=== PATIENT | female | born 1940 | race Caucasian/White ===

== ENCOUNTER 2022-04-03 21:49 | Inpatient (IN) | payer MEDICARE, OTHER ==
[~2022-04-03] VITALS: Ht 167.6 cm; Wt 74.1 kg
[2022-04-03 21:30] VITALS: BP 134/55
--- NOTE | 2022-04-03 21:30 | NUR ---
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 AAOx4 Patient Chilean but speaks good Mexican. Patient has Hx of Ovarian Ca, was on Chemo x8yrs ago, hysterectomy, HTN,and CVA with left side weakness. VSS. John catheter intact draining yellow urine. All needs attended. Sacral area excoriated, also has abdominal folds excoriated. Denies any pain nor any discomfort. On O2 @ 2L via nasal cannula, pulse ox 95%. Left side weak. Repositioned for comfort. Turned to sides. Epic group (dr Santoyo) texted to reconcile meds. Dr Howell also aware of patient's admission. Will monitor patient.
[2022-04-03] MEDS ORDERED: REMEDY ESSENTIAL ZINC PASTE 113 GM TOP PRN (22:00)
[2022-04-03] MEDS ORDERED: ONDA-104 PO (23:01)
[2022-04-03] MEDS ORDERED: APIX2.5T PO (23:01)
[2022-04-03] MEDS ORDERED: POLY119P2 PO (23:01)
[2022-04-03] MEDS ORDERED: CARV25TA2 PO (23:01)
[2022-04-03] MEDS ORDERED: BISA10SU61 RC (23:01)
[2022-04-03] MEDS ORDERED: DIPH25CA83 PO (23:01)
[2022-04-03] MEDS ORDERED: PANT40TA49 PO (23:01)
[2022-04-03] MEDS ORDERED: ACET-2154 PO (23:01)
[2022-04-03] MEDS ORDERED: TRAM50TA PO (23:01)
[2022-04-03] MEDS ORDERED: ATOR10TA PO (23:01)
[2022-04-03] MEDS ORDERED: DOCU100C36 PO (23:01)
[2022-04-03] MEDS ORDERED: HYDR4CRE2 TP (23:01)
[2022-04-04 05:00] VITALS: BP 154/57
[2022-04-04] MEDS ORDERED: HYDR453.3 TP (06:46)
[2022-04-04 07:44] VITALS: BP 142/44
--- NOTE | 2022-04-04 08:00 | NUR ---
Assisted with breakfast. Cleansd and repositioned.
--- NOTE | 2022-04-04 09:15 | NUR ---
Daughter here. Cleaned and changed once again. Has noguera, and no bm at this time.
[2022-04-04] MEDS: ACETAMINOPHEN 325 MG TABLET PO PRN ×2 (10:19→20:21)
--- NOTE | 2022-04-04 10:30 | NUR ---
MODERATE AMOUNT STOOL. LINEN CHANGED. REPOSITIONED.
[2022-04-04] MEDS ORDERED: POLYETHYLENE GLYCOL 3350 238 GM POWDER PO SCH (11:15)
[2022-04-04] MEDS ORDERED: BISACODYL 10 MG SUPP.RECT RC PRN (11:15)
[2022-04-04] MEDS ORDERED: HYDROCORTISONE 1% CREAM 30 GM TUBE TP PRN (11:15)
[2022-04-04] MEDS ORDERED: HYDROCORTISONE 2.5% CREAM 20 GM TUBE TOP PRN (11:15)
[2022-04-04] MEDS ORDERED: ONDANSETRON HCL 4 MG TABLET PO PRN (11:15)
[2022-04-04] MEDS ORDERED: MIRALAX 17 GM POWD.PACK PO PRN (11:15)
[2022-04-04] MEDS: LACTULOSE 20 G/30 ML LIQUID UDC PO SCH ×3 (11:43→23:11)
[2022-04-04] MEDS: APIXABAN 2.5 MG TABLET PO SCH ×2 (11:43→20:23)
[2022-04-04] MEDS ORDERED: ACETAMINOPHEN 325 MG TABLET-SA PATIENTS-PAIN ONLY PO SCH (12:00)
--- NOTE | 2022-04-04 13:00 | NUR ---
LARGE LOOSE STOOL. LINEN CHANGED. REPOSITIONED.
[2022-04-04 15:49] VITALS: BP 157/78
[2022-04-04] MEDS: PANTOPRAZOLE SODIUM 40 MG TABLET.DR PO SCH (16:33)
[2022-04-04] MEDS: DOCUSATE SODIUM 100 MG CAPSULE PO SCH (16:33)
[2022-04-04] MEDS: CARVEDILOL 25 MG TABLET PO SCH (17:07)
[2022-04-04 20:03] VITALS: BP 126/54
[2022-04-04] MEDS: diphenhydrAMINE 25 MG CAP PO PRN (20:21)
[2022-04-04] MEDS: ATORVASTATIN 10 MG TABLET PO SCH (20:21)
[2022-04-04] MEDS: TRAMADOL HCL 50 MG TABLET PO PRN (23:44)
--- NOTE | 2022-04-05 04:48 | NUR ---
Awake and alert x1-2 Confused and disoriented.Patient keep on taking off clothes and stating she's hot and itching. All due meds give. Medicated for pain as needed. Slight relief noted. Slept only for a little bit. Benadryl given for itching. Fall precautions maintained. Call kimball within reach. All needs attended. John catheter intact draining yellow urine. Patient had BM this shift. Will monitor patient. Lactulose held this am.
[2022-04-05] MEDS: LACTULOSE 20 G/30 ML LIQUID UDC PO SCH ×3 (05:22→17:27)
[2022-04-05 05:59] VITALS: BP 120/59
[2022-04-05] MEDS: PANTOPRAZOLE SODIUM 40 MG TABLET.DR PO SCH ×2 (06:05→17:35)
[2022-04-05] MEDS: APIXABAN 2.5 MG TABLET PO SCH ×2 (08:44→21:27)
[2022-04-05] MEDS: TRAMADOL HCL 50 MG TABLET PO PRN (08:44)
[2022-04-05] MEDS: CARVEDILOL 25 MG TABLET PO SCH ×2 (08:44→17:35)
[2022-04-05] MEDS: DOCUSATE SODIUM 100 MG CAPSULE PO SCH ×2 (08:44→17:35)
[2022-04-05 15:47] VITALS: BP 133/51
[2022-04-05 20:59] VITALS: BP 135/61
[2022-04-05] MEDS: ATORVASTATIN 10 MG TABLET PO SCH (21:26)
[2022-04-05] MEDS: diphenhydrAMINE 25 MG CAP PO PRN (21:26)
[2022-04-05 23:56] VITALS: BP 144/65
[2022-04-06] MEDS: LACTULOSE 20 G/30 ML LIQUID UDC PO SCH ×3 (00:17→20:31)
[2022-04-06] MEDS: TRAMADOL HCL 50 MG TABLET PO PRN ×2 (02:28→20:31)
[2022-04-06] MEDS: diphenhydrAMINE 25 MG CAP PO PRN ×2 (04:17→20:31)
[2022-04-06 04:18] VITALS: BP 143/58
[2022-04-06] MEDS: PANTOPRAZOLE SODIUM 40 MG TABLET.DR PO SCH ×2 (05:57→17:27)
[2022-04-06 07:39] VITALS: BP 139/57
[2022-04-06] MEDS: CARVEDILOL 25 MG TABLET PO SCH ×2 (12:29→17:27)
[2022-04-06] MEDS: DOCUSATE SODIUM 100 MG CAPSULE PO SCH ×2 (12:29→17:27)
[2022-04-06] MEDS: APIXABAN 2.5 MG TABLET PO SCH ×2 (12:29→20:33)
[2022-04-06 15:03] VITALS: BP 117/42
[2022-04-06 20:26] VITALS: BP 123/48
[2022-04-06] MEDS: ATORVASTATIN 10 MG TABLET PO SCH (20:31)
--- NOTE | 2022-04-06 21:00 | NUR ---
Patient awake, alert, and oriented x2. No acute distress noted. Room air, respirations even and non labored. Abdomen soft with + bowel sounds. No IV access noted. John intact with danae urine noted. Side rails up x3. Call kimball in reach. Will continue to monitor.
[2022-04-07 04:13] VITALS: BP 148/50
[2022-04-07] MEDS: ACETAMINOPHEN 325 MG TABLET PO PRN ×2 (04:43→21:01)
[2022-04-07] MEDS: PANTOPRAZOLE SODIUM 40 MG TABLET.DR PO SCH ×2 (05:49→17:16)
[2022-04-07 07:30] VITALS: BP 119/50
[2022-04-07] MEDS: DOCUSATE SODIUM 100 MG CAPSULE PO SCH ×2 (08:26→17:17)
[2022-04-07] MEDS: diphenhydrAMINE 25 MG CAP PO PRN ×2 (08:26→21:01)
[2022-04-07] MEDS: APIXABAN 2.5 MG TABLET PO SCH ×2 (08:26→21:03)
[2022-04-07] MEDS: CARVEDILOL 25 MG TABLET PO SCH ×2 (08:26→17:25)
[2022-04-07] MEDS: LACTULOSE 20 G/30 ML LIQUID UDC PO SCH ×2 (08:27→21:01)
[2022-04-07] MEDS: ENSURE ENLIVE (VAN) 240 ML LIQUID PO SCH (08:27)
[2022-04-07] MEDS: HYDROCORTISONE 1% CREAM 30 GM TUBE TP SCH ×2 (12:38→17:18)
[2022-04-07 15:24] VITALS: BP 130/70
[2022-04-07 20:00] VITALS: BP 114/60
[2022-04-07] MEDS: ATORVASTATIN 10 MG TABLET PO SCH (21:01)
[2022-04-08] MEDS: PANTOPRAZOLE SODIUM 40 MG TABLET.DR PO SCH ×2 (06:09→17:18)
[2022-04-08 07:03] VITALS: BP 108/68
[2022-04-08 08:49] VITALS: BP 167/59
[2022-04-08] MEDS: DOCUSATE SODIUM 100 MG CAPSULE PO SCH ×2 (09:24→17:18)
[2022-04-08] MEDS: APIXABAN 2.5 MG TABLET PO SCH ×2 (09:25→20:38)
[2022-04-08] MEDS: ACETAMINOPHEN 325 MG TABLET PO PRN ×2 (09:25→20:37)
[2022-04-08] MEDS: LACTULOSE 20 G/30 ML LIQUID UDC PO SCH ×3 (09:25→20:42)
[2022-04-08] MEDS: CARVEDILOL 25 MG TABLET PO SCH ×2 (09:28→17:18)
[2022-04-08] MEDS: ENSURE ENLIVE (VAN) 240 ML LIQUID PO SCH (09:34)
[2022-04-08] MEDS: HYDROCORTISONE 1% CREAM 30 GM TUBE TP SCH ×2 (09:34→17:22)
[2022-04-08 16:04] VITALS: BP 153/64
--- NOTE | 2022-04-08 19:36 | NUR ---
RECEIVED REPORT FROM DEO GIFFORD RN. PATIENT IS ALERT & ORIENTED X3-4, AND ABLE TO SPEAK LATVIAN. VITAL SIGNS STABLE. PATIENT TOLERATES PO MEDICATIONS AND DIET WELL. PATIENT REA CATHETER PATENT & DRAINING. PATIENT HAD ONE BOWEL MOVEMENT. PARTICIPATES WITH PHYSICAL AND OCCUPATIONAL THERAPY SCHEDULED. PATIENT HAD COMPLAINT OF PAIN. RN MANAGED PAIN WITH MEDICATIONS ORDERED BY MD. NO ACUTE DISTRESS NOTED. FALL PRECAUTIONS IN PLACE. ALL NEEDS MET AT THIS TIME. ENDORSED CARE TO DEO GIFFORD RN, FOR CONTINUATION OF CARE.
[2022-04-08 20:00] VITALS: BP 146/48
[2022-04-08] MEDS: diphenhydrAMINE 25 MG CAP PO PRN (20:37)
[2022-04-08] MEDS: ATORVASTATIN 10 MG TABLET PO SCH (20:38)
--- NOTE | 2022-04-08 20:43 | NUR ---
Patient refused Lactulose this time. She said she had a big one this morning.
[2022-04-09 04:00] VITALS: BP 138/50
[2022-04-09] MEDS: diphenhydrAMINE 25 MG CAP PO PRN ×2 (06:19→20:38)
[2022-04-09] MEDS: PANTOPRAZOLE SODIUM 40 MG TABLET.DR PO SCH ×2 (06:19→17:07)
[2022-04-09 08:00] VITALS: BP 136/56
[2022-04-09] MEDS: CARVEDILOL 25 MG TABLET PO SCH ×2 (08:01→17:39)
[2022-04-09] MEDS: TRAMADOL HCL 50 MG TABLET PO PRN (08:43)
[2022-04-09] MEDS: LACTULOSE 20 G/30 ML LIQUID UDC PO SCH ×2 (08:43→20:30)
[2022-04-09] MEDS: DOCUSATE SODIUM 100 MG CAPSULE PO SCH ×2 (08:43→17:07)
[2022-04-09] MEDS: APIXABAN 2.5 MG TABLET PO SCH ×2 (08:45→20:39)
[2022-04-09] MEDS: ENSURE ENLIVE (VAN) 240 ML LIQUID PO SCH (09:32)
[2022-04-09] MEDS: HYDROCORTISONE 1% CREAM 30 GM TUBE TP SCH ×2 (09:32→17:11)
[2022-04-09 16:00] VITALS: BP 138/70
--- NOTE | 2022-04-09 16:28 | NUR ---
0730-Rec'd patinet in bed, awake, verbally communicative, denies pain. Call light at reach. Safety measures in place. 0900-Scheduled medication administered as ordered with no ASE noted. Oral fluids taken well. John Cath draining to gravity.
--- NOTE | 2022-04-09 18:49 | NUR ---
All needs anticipated and met, no JAYCOB or unusual happenings during shift. Patient rec'd therapy PT/OT skilled services and micheal. well. Patient's son and grandson visited her during the shift. All needs attended well and met.
[2022-04-09 20:00] VITALS: BP 136/72
[2022-04-09] MEDS: ATORVASTATIN 10 MG TABLET PO SCH (20:38)
[2022-04-09] MEDS: ACETAMINOPHEN 325 MG TABLET PO PRN (20:38)
[2022-04-10 05:49] VITALS: BP 130/71
[2022-04-10] MEDS: PANTOPRAZOLE SODIUM 40 MG TABLET.DR PO SCH ×2 (06:03→16:43)
[2022-04-10] MEDS: ACETAMINOPHEN 325 MG TABLET PO PRN ×2 (06:03→16:43)
--- NOTE | 2022-04-10 06:15 | NUR ---
Shift end report: Medicated with Benadryl for c/o itchiness and Tylenol for discomforts with help last night. Able to slept good. Then complaint of headache after AM care.Tylenol was given as ordered and needed and with relief. No further complaint presented. All needs attended and met. In no acute respiratory distress.
[2022-04-10] MEDS: CARVEDILOL 25 MG TABLET PO SCH ×2 (07:44→17:40)
[2022-04-10 07:58] VITALS: BP 118/49
[2022-04-10] MEDS: APIXABAN 2.5 MG TABLET PO SCH ×2 (08:37→20:12)
[2022-04-10] MEDS: LACTULOSE 20 G/30 ML LIQUID UDC PO SCH ×3 (08:37→20:20)
[2022-04-10] MEDS: DOCUSATE SODIUM 100 MG CAPSULE PO SCH ×2 (08:37→16:43)
[2022-04-10] MEDS: HYDROCORTISONE 1% CREAM 30 GM TUBE TP SCH ×2 (08:40→16:45)
[2022-04-10] MEDS: ENSURE ENLIVE (VAN) 240 ML LIQUID PO SCH (09:20)
--- NOTE | 2022-04-10 10:39 | NUR ---
0730-Rec'd patient in bed awake, VSS, denies pain. No resp. distress noted, no s/s of hypo/HTN, oral fluids offered and takien well. Safety measures in place and call light at reach. 0900-scheduled medication administered as ordered with no ASE noted. Oral fluids taken well. Will monitor.
[2022-04-10] MEDS: TRAMADOL HCL 50 MG TABLET PO PRN ×2 (11:26→20:18)
--- NOTE | 2022-04-10 12:08 | NUR ---
BRANDY Family Contact: BRANDY met with pt's daughter, Lisa in person ([phone]) to discuss continuation of care referrals per Lisa's request. BRANDY provided [facility] application paperwork for Lisa per request. Lisa stated per case folder, Jose, pt does not have a discharge date as of now. BRANDY stated she will continue to speak to pt regarding the discharge plan and be available as needed for further questions. Lisa was aware and agreeable.
--- NOTE | 2022-04-10 14:26 | NUR ---
INTERDISCIPLINARY TEAM CONFERENCE
[2022-04-10 16:00] VITALS: BP 130/67
--- NOTE | 2022-04-10 19:16 | NUR ---
John catheter D/C'D as ordered by MD. Procedure explained prior. Patient tolerated well. Denied any bladder pain or discomfort. Endorsed appropriately to incoming relieving NOC RN. for proper follow up.
[2022-04-10 20:00] VITALS: BP 119/45
[2022-04-10] MEDS: ATORVASTATIN 10 MG TABLET PO SCH (20:12)
[2022-04-10] MEDS: diphenhydrAMINE 25 MG CAP PO PRN (20:17)
[2022-04-11] MEDS: TRAMADOL HCL 50 MG TABLET PO PRN ×2 (03:14→09:17)
--- NOTE | 2022-04-11 03:29 | NUR ---
Bladder scan performed, showed 145cc urine retention. Patient tolerated procedure well. Continue to monitor urine output.
[2022-04-11 04:00] VITALS: BP 121/45
[2022-04-11] MEDS: PANTOPRAZOLE SODIUM 40 MG TABLET.DR PO SCH ×2 (06:18→16:45)
[2022-04-11] MEDS: CARVEDILOL 25 MG TABLET PO SCH ×2 (07:54→17:43)
[2022-04-11 07:58] VITALS: BP 128/56
[2022-04-11] MEDS: METOCLOPRAMIDE HCL 10 MG TABLET PO SCH (09:03)
[2022-04-11] MEDS: APIXABAN 2.5 MG TABLET PO SCH ×2 (09:03→20:14)
[2022-04-11] MEDS: DOCUSATE SODIUM 100 MG CAPSULE PO SCH ×2 (09:03→16:45)
[2022-04-11] MEDS: ENSURE ENLIVE (VAN) 240 ML LIQUID PO SCH ×3 (09:05→17:17)
[2022-04-11] MEDS: LACTULOSE 20 G/30 ML LIQUID UDC PO SCH ×2 (09:06→20:14)
--- NOTE | 2022-04-11 09:57 | NUR ---
Bladder scanner performed, showed 0 ml retention of urine.l PAINT MAKER reported to me that she changed pt's wet diaper and urine had a strong odor. Pt reported no pain at the bladder area.
[2022-04-11] MEDS: HYDROCORTISONE 1% CREAM 30 GM TUBE TP SCH ×2 (10:13→16:46)
[2022-04-11] MEDS: ACETAMINOPHEN 325 MG TABLET PO PRN ×2 (11:49→20:13)
[2022-04-11 11:52] LABS: *BILIRUBIN,URIN NEGATIVE (NEGATIVE); *BLOOD, URINE 1+ (NEGATIVE); *CLARITY,URINE CLOUDY (CLEAR); *COLOR,URINE Other (YELLOW); *KETONES,URINE NEGATIVE (NEGATIVE); LEUKOCYTE ESTERASE ,URINE 1+ (NEGATIVE); NITRITE, URINE NEGATIVE (NEGATIVE); PH,URINE 8.5 (5.0-8.0); UGLUCOSE NEGATIVE (NEGATIVE)
[2022-04-11 15:47] VITALS: BP 126/55
[2022-04-11 16:36] LABS: BACTERIA,URINE MANY /HPF (NONE SEEN); RBC,URINE 0-3 /HPF (0-3); SQUAMOUS EPITHELIAL CELL,UR FEW /HPF (NONE SEEN); WBC,URINE NONE SEEN /HPF (0-3)
[2022-04-11 16:37] LABS: TRIPLE PHOSPHATE CRYSTAL,UR FEW /HPF (NONE SEEN)
[2022-04-11 20:00] VITALS: BP 102/52
[2022-04-11] MEDS: ATORVASTATIN 10 MG TABLET PO SCH (20:13)
[2022-04-11] MEDS: diphenhydrAMINE 25 MG CAP PO PRN (20:13)
[2022-04-12] MEDS: ACETAMINOPHEN 325 MG TABLET PO PRN ×2 (04:42→15:23)
[2022-04-12 04:54] VITALS: BP 110/68
[2022-04-12] MEDS: PANTOPRAZOLE SODIUM 40 MG TABLET.DR PO SCH ×2 (05:23→17:51)
[2022-04-12 06:45] LABS: HEMATOCRIT 29.4 % (31.2-41.9); MEAN CORPUSCULAR HEMOGLOBIN 23.4 uug (24.7-32.8); PLATELET COUNT (AUTO) 608 K/uL (179-408)
[2022-04-12 07:22] LABS: BILIRUBIN,TOTAL 1.1 mg/dL (0.2-1.0); CREATININE 1.3 mg/dL (0.6-1.3); MAGNESIUM 1.6 mg/dL (1.8-2.4); PHOSPHOROUS 3.7 mg/dL (2.5-4.9); POTASSIUM 3.5 mmol/L (3.5-5.1); TOTAL PROTEIN, SERUM 6.2 g/dL (6.4-8.2)
[2022-04-12 08:01] VITALS: BP 110/46
[2022-04-12] MEDS: LACTULOSE 20 G/30 ML LIQUID UDC PO SCH ×3 (09:00→21:27)
[2022-04-12] MEDS: ENSURE ENLIVE (VAN) 240 ML LIQUID PO SCH ×2 (09:46→17:51)
[2022-04-12] MEDS: METOCLOPRAMIDE HCL 10 MG TABLET PO SCH (09:46)
[2022-04-12] MEDS: DOCUSATE SODIUM 100 MG CAPSULE PO SCH ×2 (09:46→17:51)
[2022-04-12] MEDS: APIXABAN 2.5 MG TABLET PO SCH ×2 (09:47→21:26)
[2022-04-12] MEDS: CARVEDILOL 25 MG TABLET PO SCH ×2 (09:48→17:51)
[2022-04-12] MEDS: HYDROCORTISONE 1% CREAM 30 GM TUBE TP SCH ×2 (09:52→17:51)
[2022-04-12] MEDS ORDERED: MAGNESIUM OXIDE 400 MG TABLET PO ONE (10:30)
[2022-04-12] MEDS: TRAMADOL HCL 50 MG TABLET PO PRN (15:29)
[2022-04-12 15:54] VITALS: BP 118/48
--- NOTE | 2022-04-12 19:31 | NUR ---
SHIFT NOTES: DAUGHTER WITH PATIENT THROUGH SHIFT PT HAD ONE LARGE BM AND MEDICATION GIVEN ORDERED GAVE ULTRAM FOR HEADACHE REASSESSED WITH IN HOUR PATIENT SLEEPING AND NO ADVERSE REACTION FROM MEDICATION AND PATIENT GIVEN A NEW TUBE OF HYDROCORTISONE CREAM IN THE AM PER DAUGHTER REQUEST.
[2022-04-12 20:00] VITALS: BP 108/46
[2022-04-12] MEDS: ATORVASTATIN 10 MG TABLET PO SCH (21:26)
[2022-04-12] MEDS: diphenhydrAMINE 25 MG CAP PO PRN (22:08)
--- NOTE | 2022-04-12 23:00 | NUR ---
1915-PATIENT IN BED, AWAKE, A/Ox2-3. NO RESPIRATORY DISTRESS NOTED. The patient has no IV access. SAFETY MEASURES AND CALL LIGHT AT REACH, bed at lowest position, wheels lock, and two side rails up, bed alarm on. ORAL FLUIDS OFFERED STACY. AND TAKEN WELL. Will continue to monitor throughout the shift. 2300- The patient is awake and request for an extra blanket. Item is given to the patient. The patient has no signs of distress, or sob. Will continue to monitor throughout the shift. 0300- The patient request for an extra pillow. Item is given to the patient. The patient has no sob. Will continue to monitor throughout the shift.
[2022-04-13 04:00] VITALS: BP 124/78
[2022-04-13] MEDS: PANTOPRAZOLE SODIUM 40 MG TABLET.DR PO SCH ×2 (06:55→16:12)
[2022-04-13 07:31] LABS: CREATININE 1.1 mg/dL (0.6-1.3); MAGNESIUM 1.6 mg/dL (1.8-2.4); POTASSIUM 3.6 mmol/L (3.5-5.1)
[2022-04-13] MEDS: METOCLOPRAMIDE HCL 10 MG TABLET PO SCH (08:18)
[2022-04-13] MEDS: DOCUSATE SODIUM 100 MG CAPSULE PO SCH ×2 (08:18→16:12)
[2022-04-13] MEDS: diphenhydrAMINE 25 MG CAP PO PRN (08:19)
[2022-04-13] MEDS: LACTULOSE 20 G/30 ML LIQUID UDC PO SCH ×2 (08:20→20:53)
[2022-04-13] MEDS: ENSURE ENLIVE (VAN) 240 ML LIQUID PO SCH ×2 (08:21→16:13)
[2022-04-13] MEDS: CARVEDILOL 25 MG TABLET PO SCH ×2 (08:21→17:12)
[2022-04-13] MEDS: HYDROCORTISONE 1% CREAM 30 GM TUBE TP SCH ×2 (08:22→16:13)
[2022-04-13] MEDS: APIXABAN 2.5 MG TABLET PO SCH ×2 (08:33→20:53)
[2022-04-13 08:55] VITALS: BP 131/48
[2022-04-13] MEDS ORDERED: MAGNESIUM OXIDE 400 MG TABLET PO ONE (10:30)
[2022-04-13] MEDS: SULFAMETH/TRIMETH 800/160 MG TABLET PO SCH ×2 (10:52→20:53)
[2022-04-13] MEDS: TRAMADOL HCL 50 MG TABLET PO PRN ×2 (10:53→17:13)
--- NOTE | 2022-04-13 13:38 | NUR ---
PATIENT IS VOIDING LARGE AMOUNT OF URINE IN DIAPER, NO BLADDER DISTENSION OR TENDERNESS NOTED. BLADDER SCAN RESIDUAL IS 90ML
[2022-04-13 14:45] VITALS: BP 121/58
[2022-04-13] MEDS ORDERED: VITAMINS A AND D OINT TP PRN (16:15)
--- NOTE | 2022-04-13 16:39 | NUR ---
no events noted
[2022-04-13] MEDS: ATORVASTATIN 10 MG TABLET PO SCH (20:53)
[2022-04-13 20:57] VITALS: BP 104/39
--- NOTE | 2022-04-13 23:00 | NUR ---
1920-PATIENT IN BED, AWAKE, A/Ox2-3. NO RESPIRATORY DISTRESS NOTED. The patient has no IV access. SAFETY MEASURES AND CALL LIGHT AT REACH, bed at lowest position, wheels lock, and two side rails up, bed alarm on. ORAL FLUIDS OFFERED STACY. AND TAKEN WELL. Will continue to monitor throughout the shift. 2200- The patient is awake and request for an extra warm blanket. Item is given to the patient. The patient has no signs of distress, or sob. Will continue to monitor throughout the shift. 2300- Daughter called to notified that she will stop by tomorrow morning at 10am. 0300- The patient request for water. Item is given to the patient. The patient has no sob. Will continue to monitor throughout the shift.
[2022-04-14] MEDS: diphenhydrAMINE 25 MG CAP PO PRN ×3 (02:28→21:41)
[2022-04-14 04:05] VITALS: BP 119/51
[2022-04-14] MEDS: PANTOPRAZOLE SODIUM 40 MG TABLET.DR PO SCH ×2 (06:41→16:38)
[2022-04-14 07:32] VITALS: BP 135/51
[2022-04-14 07:41] LABS: CREATININE 1.1 mg/dL (0.6-1.3); MAGNESIUM 1.6 mg/dL (1.8-2.4); POTASSIUM 3.7 mmol/L (3.5-5.1)
[2022-04-14] MEDS: DOCUSATE SODIUM 100 MG CAPSULE PO SCH ×2 (08:22→16:38)
[2022-04-14] MEDS: APIXABAN 2.5 MG TABLET PO SCH ×2 (08:22→20:20)
[2022-04-14] MEDS: SULFAMETH/TRIMETH 800/160 MG TABLET PO SCH ×2 (08:22→20:19)
[2022-04-14] MEDS: ENSURE ENLIVE (VAN) 240 ML LIQUID PO SCH ×2 (08:23→16:31)
[2022-04-14] MEDS: HYDROCORTISONE 1% CREAM 30 GM TUBE TP SCH ×2 (08:23→16:31)
[2022-04-14] MEDS: METOCLOPRAMIDE HCL 10 MG TABLET PO SCH (08:23)
[2022-04-14] MEDS: CARVEDILOL 25 MG TABLET PO SCH ×2 (08:24→18:00)
[2022-04-14] MEDS: LACTULOSE 20 G/30 ML LIQUID UDC PO SCH ×2 (08:24→20:20)
[2022-04-14] MEDS: TRAMADOL HCL 50 MG TABLET PO PRN (08:27)
[2022-04-14] MEDS ORDERED: MAGNESIUM OXIDE 400 MG TABLET PO ONE (11:00)
--- NOTE | 2022-04-14 13:39 | NUR ---
PATIENT IS VOIDING LARGE AMOUNT OF URINE IN DIAPER, NO BLADDER DISTENSION OR TENDERNESS NOTED. BLADDER SCAN RESIDUAL IS 132ML
[2022-04-14 16:00] VITALS: BP 98/47
[2022-04-14] MEDS: ATORVASTATIN 10 MG TABLET PO SCH (20:19)
[2022-04-14 20:36] VITALS: BP 98/34
[2022-04-14] MEDS: ACETAMINOPHEN 325 MG TABLET PO PRN (21:40)
[2022-04-15] MEDS: TRAMADOL HCL 50 MG TABLET PO PRN ×2 (02:44→16:04)
[2022-04-15 04:35] VITALS: BP 115/36
[2022-04-15] MEDS: ACETAMINOPHEN 325 MG TABLET PO PRN ×2 (05:39→22:33)
[2022-04-15] MEDS: PANTOPRAZOLE SODIUM 40 MG TABLET.DR PO SCH ×2 (05:39→17:20)
--- NOTE | 2022-04-15 06:28 | NUR ---
Shift End Report: Medicated for pain, headache and itchiness with relief. No further complaint presented.Slept good. No s/s of adverse reaction noted from Bactrim. Encouraged patient to increase oral fluid intake as tolerated.Voiding good with no problem. All needs attended and met. Safety measures and fall prevention maintained. No significant event reported all night. Continue current rehab plan of care.
[2022-04-15 07:32] VITALS: BP 111/44
[2022-04-15] MEDS: CARVEDILOL 25 MG TABLET PO SCH ×2 (09:00→19:03)
[2022-04-15] MEDS: DOCUSATE SODIUM 100 MG CAPSULE PO SCH ×2 (09:16→17:19)
[2022-04-15] MEDS: SULFAMETH/TRIMETH 800/160 MG TABLET PO SCH ×2 (09:16→20:25)
[2022-04-15] MEDS: METOCLOPRAMIDE HCL 10 MG TABLET PO SCH (09:16)
[2022-04-15] MEDS: ENSURE ENLIVE (VAN) 240 ML LIQUID PO SCH ×2 (09:17→17:21)
[2022-04-15] MEDS: LACTULOSE 20 G/30 ML LIQUID UDC PO SCH ×2 (09:17→20:29)
[2022-04-15] MEDS: APIXABAN 2.5 MG TABLET PO SCH ×2 (09:19→20:25)
[2022-04-15] MEDS: HYDROCORTISONE 1% CREAM 30 GM TUBE TP SCH ×2 (09:24→16:04)
[2022-04-15] MEDS: diphenhydrAMINE 25 MG CAP PO PRN ×2 (15:36→22:32)
[2022-04-15 16:22] VITALS: BP 136/54
--- NOTE | 2022-04-15 16:35 | NUR ---
Tramadol given for pain at 1535, patient tolerated well. Daughter by bedside.
--- NOTE | 2022-04-15 19:12 | NUR ---
Patient resting comfortably in bed. Endorse to night nurse regarding Benadry @ 2100.
[2022-04-15] MEDS: ATORVASTATIN 10 MG TABLET PO SCH (20:25)
[2022-04-15 23:43] VITALS: BP 127/61
[2022-04-16 06:12] VITALS: BP 145/57
[2022-04-16] MEDS: PANTOPRAZOLE SODIUM 40 MG TABLET.DR PO SCH ×2 (06:16→17:41)
[2022-04-16 07:56] VITALS: BP 137/47
[2022-04-16] MEDS: CARVEDILOL 25 MG TABLET PO SCH ×2 (08:11→18:46)
[2022-04-16] MEDS: SULFAMETH/TRIMETH 800/160 MG TABLET PO SCH ×2 (08:11→21:03)
[2022-04-16] MEDS: DOCUSATE SODIUM 100 MG CAPSULE PO SCH ×2 (08:11→17:41)
[2022-04-16] MEDS: LACTULOSE 20 G/30 ML LIQUID UDC PO SCH ×2 (08:11→21:03)
[2022-04-16] MEDS: METOCLOPRAMIDE HCL 10 MG TABLET PO SCH (08:11)
[2022-04-16] MEDS: ENSURE ENLIVE (VAN) 240 ML LIQUID PO SCH ×2 (08:12→17:42)
[2022-04-16] MEDS: APIXABAN 2.5 MG TABLET PO SCH ×2 (08:13→21:03)
[2022-04-16] MEDS: HYDROCORTISONE 1% CREAM 30 GM TUBE TP SCH ×2 (08:22→17:42)
--- NOTE | 2022-04-16 10:23 | NUR ---
Pt's call light not working. Notified engineering and they said they would come take a look at it. Will follow up.
[2022-04-16] MEDS: TRAMADOL HCL 50 MG TABLET PO PRN (12:06)
--- NOTE | 2022-04-16 13:00 | NUR ---
Pt's ramilar, Lisa at bedside assisting with pt care. Pt c/o JONES, prn tramadol given. Pt's call light now working properly.
[2022-04-16] MEDS: ACETAMINOPHEN 325 MG TABLET PO PRN ×2 (14:17→21:03)
[2022-04-16 14:29] VITALS: BP 121/48
--- NOTE | 2022-04-16 14:31 | NUR ---
Pt continues to c/o JONES after returning from PT. Tylenol given. BP taken and VSS. Pt wants to take a nap. Will assess her JONES again after her nap.
[2022-04-16 16:13] VITALS: BP 112/41
[2022-04-16] MEDS: diphenhydrAMINE 25 MG CAP PO PRN ×2 (16:13→21:02)
--- NOTE | 2022-04-16 16:14 | NUR ---
Per pt's daughter, Charline Gonzalez, [employer] was from neurology saw the pt reguarding her head pain and suggested alternating COLD and HOT PACKS, DUE TO A SUSPECTED PINCHED NERVE IN HER NECK. Cold pack given, will continue to monitor.
--- NOTE | 2022-04-16 19:19 | NUR ---
Endorsed pt to supriya Kathleen nurse. Worked this shift with Pat Foreman [facility] RN student. Pt stable, no s/s of distress noted.
[2022-04-16 20:22] VITALS: BP 118/52
[2022-04-16] MEDS: ATORVASTATIN 10 MG TABLET PO SCH (21:03)
[2022-04-17 04:31] VITALS: BP_SYST 118; BP_SYST 153; BP_DIAS 49; BP_DIAS 93
[2022-04-17] MEDS: PANTOPRAZOLE SODIUM 40 MG TABLET.DR PO SCH ×2 (05:59→17:11)
[2022-04-17] MEDS: ACETAMINOPHEN 325 MG TABLET PO PRN (06:49)
--- NOTE | 2022-04-17 07:06 | NUR ---
Medicated with Tylenol for complaint of headache. Will monitor.
[2022-04-17 07:23] LABS: HEMATOCRIT 27.7 % (31.2-41.9); MEAN CORPUSCULAR HEMOGLOBIN 24.3 uug (24.7-32.8); MEAN CORPUSCULAR VOLUME 76.7 fL (75.5-95.3); PLATELET COUNT (AUTO) 474 K/uL (179-408)
[2022-04-17 07:47] VITALS: BP 121/47
[2022-04-17 08:09] LABS: THYROID STIMULATING HORMONE 1.489 mIU/mL (0.358-3.740)
[2022-04-17] MEDS: DOCUSATE SODIUM 100 MG CAPSULE PO SCH ×2 (08:41→17:11)
[2022-04-17] MEDS: SULFAMETH/TRIMETH 800/160 MG TABLET PO SCH ×2 (08:41→20:48)
[2022-04-17] MEDS: LACTULOSE 20 G/30 ML LIQUID UDC PO SCH ×2 (08:41→20:49)
[2022-04-17] MEDS: METOCLOPRAMIDE HCL 10 MG TABLET PO SCH (08:41)
[2022-04-17] MEDS: APIXABAN 2.5 MG TABLET PO SCH ×2 (08:43→20:49)
[2022-04-17 08:51] LABS: ALANINE AMINOTRANSFERASE 11 U/L (14-59); ALKALINE PHOSPHATASE 94 U/L (50-136); ASPARTATE AMINOTRANSFERASE 17 U/L (15-37); BILIRUBIN,TOTAL 0.5 mg/dL (0.2-1.0); CARBON DIOXIDE 27 mmol/L (21-32); CHLORIDE 101 mmol/L (98-107); CHOLESTEROL 138 mg/dL (<200); CREATININE 1.4 mg/dL (0.6-1.3); GLUCOSE 80 mg/dL (74-106); HDL CHOLESTEROL 50 mg/dL (40-60); MAGNESIUM 1.7 mg/dL (1.8-2.4); PHOSPHOROUS 3.8 mg/dL (2.5-4.9); POTASSIUM 4.3 mmol/L (3.5-5.1); TOTAL PROTEIN, SERUM 6.5 g/dL (6.4-8.2); TRIGLYCERIDES 92 MG/DL (30-150); UREA NITROGEN, BLOOD 24 mg/dL (7-18)
[2022-04-17] MEDS: CARVEDILOL 25 MG TABLET PO SCH ×2 (08:55→17:13)
[2022-04-17] MEDS: TRAMADOL HCL 50 MG TABLET PO PRN (08:57)
[2022-04-17] MEDS: HYDROCORTISONE 1% CREAM 30 GM TUBE TP SCH ×2 (08:58→17:00)
[2022-04-17] MEDS: ENSURE ENLIVE (VAN) 240 ML LIQUID PO SCH ×2 (08:58→17:12)
[2022-04-17 09:03] LABS: IRON, SERUM 50 ug/dL (50-175)
[2022-04-17] MEDS ORDERED: MAGNESIUM OXIDE 400 MG TABLET PO ONE (10:00)
--- NOTE | 2022-04-17 13:20 | NUR ---
Notified Dr. Howell during ARU meeting of pt's JONES and neck pain x3-4 days. stated he would follow up.
--- NOTE | 2022-04-17 13:45 | NUR ---
Reviewed pt's labs with dtrLisa, per pt and dtr request.
[2022-04-17 16:44] VITALS: BP 104/54
[2022-04-17] MEDS: diphenhydrAMINE 25 MG CAP PO PRN (17:55)
--- NOTE | 2022-04-17 18:13 | NUR ---
Pt's back and trunk fully healed. Hytone 1% Cream refused both times by pt today.
--- NOTE | 2022-04-17 18:35 | NUR ---
Spoke with Dr. Barrow re: pt's request for something for hemorrhoids and a doctor's note okaying a dentist visit. Dr. Barrow ordered a hemorrhoid suppository and will add a doctor's note about dental exam pending pt's condition upon discharge.
[2022-04-17 20:00] VITALS: BP 106/64
[2022-04-17] MEDS: ATORVASTATIN 10 MG TABLET PO SCH (20:49)
[2022-04-17] MEDS: HYDROCORTISONE RECTAL SUPP 25 MG EACH RC SCH (20:49)
[2022-04-18] MEDS: ACETAMINOPHEN 325 MG TABLET PO PRN ×2 (00:43→16:16)
[2022-04-18] MEDS: diphenhydrAMINE 25 MG CAP PO PRN ×2 (00:43→16:17)
[2022-04-18 03:45] VITALS: BP 115/60
[2022-04-18] MEDS: PANTOPRAZOLE SODIUM 40 MG TABLET.DR PO SCH ×2 (06:05→17:22)
[2022-04-18] MEDS: CARVEDILOL 25 MG TABLET PO SCH ×2 (07:54→18:07)
--- NOTE | 2022-04-18 07:57 | NUR ---
0730-Patient in bed, awake, alert and able to verbalize her needs, denies pain. Offered oral fluids and taken well. No s/s of hypo/HTN, repositioned for comfort/covered with warm blankets, call lights within reach.
[2022-04-18 08:00] VITALS: BP 131/52
[2022-04-18] MEDS: SULFAMETH/TRIMETH 800/160 MG TABLET PO SCH ×2 (08:33→20:26)
[2022-04-18] MEDS: DOCUSATE SODIUM 100 MG CAPSULE PO SCH ×2 (08:33→16:17)
[2022-04-18] MEDS: METOCLOPRAMIDE HCL 10 MG TABLET PO SCH (08:33)
[2022-04-18] MEDS: HYDROCORTISONE RECTAL SUPP 25 MG EACH RC SCH ×2 (08:34→20:26)
[2022-04-18] MEDS: APIXABAN 2.5 MG TABLET PO SCH ×2 (08:37→20:27)
[2022-04-18] MEDS: TRAMADOL HCL 50 MG TABLET PO PRN (08:38)
[2022-04-18] MEDS: LACTULOSE 20 G/30 ML LIQUID UDC PO SCH ×3 (08:38→20:29)
[2022-04-18] MEDS: ENSURE ENLIVE (VAN) 240 ML LIQUID PO SCH ×2 (09:28→17:23)
[2022-04-18] MEDS: HYDROCORTISONE 1% CREAM 30 GM TUBE TP SCH ×2 (09:28→17:23)
--- NOTE | 2022-04-18 12:55 | NUR ---
0900-SCHEDULED MEDICATION ADMINISTERED WITH NO ASE NOTED, ORAL FLUIDS TAKEN WELL, NO S/S OF HYPO/HTN NOTED. 1100-OOB WITH REHAB IN HER THERAPY, DAUGHTER IN ROOM VISITING HER.
[2022-04-18 17:04] VITALS: BP 103/52
--- NOTE | 2022-04-18 18:41 | NUR ---
Patient in her baseline stable conditions. Assisted with ADLs and as needed. Care provided at routine intervals/PRN. Patient was visited by daughter during shift. All needs anticipated and met.
[2022-04-18 20:00] VITALS: BP 101/53
[2022-04-18] MEDS: ATORVASTATIN 10 MG TABLET PO SCH (20:26)
[2022-04-19] MEDS: diphenhydrAMINE 25 MG CAP PO PRN (03:58)
[2022-04-19 04:00] VITALS: BP 132/68
[2022-04-19] MEDS: PANTOPRAZOLE SODIUM 40 MG TABLET.DR PO SCH (06:04)
[2022-04-19 06:51] LABS: HEMATOCRIT 28.3 % (31.2-41.9); MEAN CORPUSCULAR HEMOGLOBIN 24.4 uug (24.7-32.8); MEAN CORPUSCULAR VOLUME 77.2 fL (75.5-95.3); PLATELET COUNT (AUTO) 411 K/uL (179-408)
[2022-04-19 07:20] LABS: ALANINE AMINOTRANSFERASE 16 U/L (14-59); ALKALINE PHOSPHATASE 90 U/L (50-136); ASPARTATE AMINOTRANSFERASE 14 U/L (15-37); BILIRUBIN,TOTAL 0.5 mg/dL (0.2-1.0); CARBON DIOXIDE 26 mmol/L (21-32); CHLORIDE 102 mmol/L (98-107); CREATININE 1.5 mg/dL (0.6-1.3); GLUCOSE 80 mg/dL (74-106); MAGNESIUM 1.8 mg/dL (1.8-2.4); PHOSPHOROUS 3.3 mg/dL (2.5-4.9); POTASSIUM 4.5 mmol/L (3.5-5.1); TOTAL PROTEIN, SERUM 6.6 g/dL (6.4-8.2); UREA NITROGEN, BLOOD 28 mg/dL (7-18)
[2022-04-19 07:50] VITALS: BP 123/52
--- NOTE | 2022-04-19 07:53 | NUR ---
0730-PATIENT IN BED, AWAKE, ON R/A, NO RESPIRATORY DISTRESS NOTED, PATIENT DENIES PAIN. OFFERED ORAL FLUIDS AND TAKEN WELL. SAFETY MEASURES IN PLACE, CALL LIGHT AT REACH, ENCOURAGED TO USE IT EVERY TIME HELP IS NEEDED WITH GOOD UNDERSTANDING.
[2022-04-19] MEDS: HYDROCORTISONE RECTAL SUPP 25 MG EACH RC SCH (08:32)
[2022-04-19] MEDS: METOCLOPRAMIDE HCL 10 MG TABLET PO SCH (08:32)
[2022-04-19] MEDS: LACTULOSE 20 G/30 ML LIQUID UDC PO SCH (08:33)
[2022-04-19] MEDS: DOCUSATE SODIUM 100 MG CAPSULE PO SCH (08:33)
[2022-04-19] MEDS: APIXABAN 2.5 MG TABLET PO SCH (08:33)
[2022-04-19] MEDS: SULFAMETH/TRIMETH 800/160 MG TABLET PO SCH (08:33)
[2022-04-19] MEDS: ENSURE ENLIVE (VAN) 240 ML LIQUID PO SCH (09:13)
[2022-04-19] MEDS: HYDROCORTISONE 1% CREAM 30 GM TUBE TP SCH (09:13)
--- NOTE | 2022-04-19 09:59 | NUR ---
0900-SCHEDULED MEDICATION ADMINISTERED ORDERED, NO ASE NOTED; ORAL FLUIDS TAKEN WELL. 0930-DAUGHTER AT BEDSIDE, BELONGING/INVENTORY LIST COMPLETED AND SIGNED. PATIENT PENDING DC TODAY.
[2022-04-19] MEDS: TRAMADOL HCL 50 MG TABLET PO PRN (14:10)
--- NOTE | 2022-04-19 14:38 | NUR ---
2080-PATIENT WAS PICKED UP BY AMBULANCE/DISCHARGED SAFELY HOME. DAUGHTER AT BEDSIDE ACCOMPANYING PATIENT. PROVIDED WITH SOME BED DISPOSABLE PADS AND A BAG OF DIAPERS (CONFIRMED WITH LINE PULLER OK TO GIVE SAID SUPPLIES). MEDICATION LIST WAS FINALIZED BY DR. BIRCH AND FAXED TO PHARMACY OF PATIENT/DAUGHTER'S CHOICE AT , CALLED AND SPOKE TO [facility]. MEDICATION LIST ORIGINAL COPIES/PHYSICIAN'S HARD COPIES GIVEN TO DAUGHTER. OTHER DC PAPERWORK PROVIDED. INVENTORY LIST SIGNED/PERSONAL BELONGINGS TAKEN. PATIENT LEFT IN GOOD STABLE CONDITIONS. A/OX4, ABLE TO VERBALIZE HER NEEDS AND FOLLOW DIRECTIONS. NO RESPIRATORY DISTRESS NOTED, DENIES PAIN, VSS.
[2022-04-19] MEDS ORDERED: CARVEDILOL 12.5 MG TABLET PO SCH (18:00)
--- NOTE | 2022-04-20 14:33 | NUR ---
INTERDISCIPLINARY TEAM CONFERENCE THIS WAS OBSERVED AND DONE ON 04/11/21 13:00
--- NOTE | 2022-04-20 14:36 | NUR ---
INTERDISCIPLINARY TEAM CONFERENCE THIS WAS OBSERVED AND DONE ON 04/17/22 13:00
--- NOTE | 2022-04-20 14:39 | NUR ---
INDIVIDUALIZED PLAN OF CARE THIS WAS OBSERVED AND DONE ON 04/06/22
== END 2022-04-19 14:40 | disposition home health service (06) | DRG 175 ==
PROVIDERS: ADMIT Physical Medicine & Rehabilitation Pain Medicine; ATTEND Physical Medicine & Rehabilitation Pain Medicine
DX: I26.99 Other pulmonary embolism without acute cor pulmonale (principal); E43 Unspecified severe protein-calorie malnutrition; N17.0 Acute kidney failure with tubular necrosis; G93.40 Encephalopathy, unspecified; I69.354 Hemiplegia and hemiparesis following cerebral infarction affecting left non-dominant side; I82.412 Acute embolism and thrombosis of left femoral vein; I82.432 Acute embolism and thrombosis of left popliteal vein; K92.2 Gastrointestinal hemorrhage, unspecified; D68.59 Other primary thrombophilia; E87.1 Hypo-osmolality and hyponatremia; J98.11 Atelectasis; R53.1 Weakness; D50.0 Iron deficiency anemia secondary to blood loss (chronic); R62.7 Adult failure to thrive; Z85.43 Personal history of malignant neoplasm of ovary; Z79.01 Long term (current) use of anticoagulants; E83.42 Hypomagnesemia; I12.9 Hypertensive chronic kidney disease with stage 1 through stage 4 chronic kidney disease, or unspecified chronic kidney disease; I25.10 Atherosclerotic heart disease of native coronary artery without angina pectoris; K59.00 Constipation, unspecified; K64.9 Unspecified hemorrhoids; R80.9 Proteinuria, unspecified; E66.9 Obesity, unspecified; Z68.26 Body mass index [BMI] 26.0-26.9, adult; N18.2 Chronic kidney disease, stage 2 (mild); Z90.710 Acquired absence of both cervix and uterus; Z95.828 Presence of other vascular implants and grafts; Z92.21 Personal history of antineoplastic chemotherapy
CPT/HCPCS: 36415; 74018; 83550; 83735; 84100; 84443; 85025; 97535-GO-CO; A4663; C1758; J8597; Q0163